=== PATIENT | male | born 1965 | race Caucasian/White ===

== ENCOUNTER 2017-11-03 04:20 | Emergency (ER) | payer BC ==
[2017-11-03 04:27] VITALS: BP 158/118; PULSE 81; BMI 34.2
--- NOTE | 2017-11-03 04:37 | PDOC ---
History of Present Illness - General Chief Complaint: Pain, Acute Stated Complaint: ABD PAIN Time Seen by Provider: 11/03/17 04:31 History Source: Patient Exam Limitations: No Limitations - History of Present Illness Initial Comments: 11/03/17 04:36 This is a 52-year-old male who has history of [id number] diabetes comes in complaining of mid abdomen abdominal pain. Patient describes it as sharp in nature and will come up out of a sleep. Patient denies any fever or chills however is noted to have a temperature 101 here in the emergency room. Patient denies nausea, vomiting or diarrhea. Patient said he is otherwise healthy. Patient denies any chest pain or shortness of breath. PAST MEDICAL HISTORY: [id number] diabetes PAST SURGICAL HISTORY: no significant history FAMILY HISTORY: no pertinant history SOCIAL HISTORY: Pt lives with family and is employed. MEDICATIONS: reviewed ALLERGIES: As per nursing notes Review of Systems General: No fevers or chills, no weakness, no weight loss HEENT: No change in vision. No sore throat,. No ear pain CardioVascular: No chest pain or shortness of breath Respiratory:No cough, or wheezing. Gastrointestinal: no nausea, vomitting, diarrhea or constipation, No rectal bleeding Genitourinary: No dysuria, hematuria, or frequency Musculoskeletal: No joint or muscle pain or swelling Neurologic: No headache, vertigo, dizziness or loss of consciousness Psychiatric: nor depression Skin: No rashes or easy bruising Endocrine: no increased thirst or abnormal weight change Allergic: no skin or latex allergy All other systems reviewed and normal Exam: General: Well-nourished well-developed individual, no acute distress HEENT: Throat: Normal, tonsils normal, no erythema or exudate Neck: Supple, no meningeal signs, no lymphadenopathy Eyes::Pupils equal reactive and round, extraocular motion intact Chest: Nontender to palpation Cardiac: S1-S2 normal, regular rate and rhythm, no murmurs rubs or gallops Respiratory: Lungs clear to auscultation bilateral Abdomen: Soft, nondistended, normal bowel sounds, mildly tender to palpation mid abdomen no guarding or rebound. Extremities: Warm, dry, no cyanosis, clubbing, or edema Skin: No rashes Neuro: Alert and oriented x3, CN II - XII intact, nonfocal exam with normal strength, normal sensation, normal reflexes, normal gait, Psych: Normal mood and affect Medical decision making this is a 52-year-old male who comes in complaining of abdominal pain patient has history significant for diabetes. Will obtain workup as patient does have a fever of 101 but no other associated symptoms. CBC, comp depending on the results of the lab will consider doing a CAT scan Will reassess 06:00 Patient's symptoms have completely resolved the pain is gone after having given patient some IV fluids and nothing else. Assessment and plan: This is a 52-year-old male comes to emergency room with sharp epigastric abdominal pain Patient's CBC is normal there is no left shift or evidence of any infectious process Patient's chemistries are also normal with the exception of a glucose of 213 which is secondary to his diabetes Patient discharged and told to follow-up with his primary care doctor Saturday if he has any further symptoms. In addition to that patient did pass a fair amount of gas in the emergency room and after that his symptoms resolved so this very well could have been gas pains. Etiology of the fever is uncertain however with a normal workup patient was advised that if he continues to have fevers he should follow-up with his doctor on Saturday or return to the ED Past History - Past Medical History Allergies/Adverse Reactions: Allergies Allergy/AdvReac Type Severity Reaction Status Date / Time No Known Allergies Allergy Unverified 11/03/17 04:24 Home Medications: Ambulatory Orders Metformin HCl 500 mg PO BID 11/03/17 CVA: No COPD: No Diabetes: Yes - Suicide/Smoking/Psychosocial Hx Smoking History: Current every day smoker Number of Cigarettes Smoked Daily: 20 Information on smoking cessation initiated: Yes 'Breaking Loose' booklet given: 11/03/17 *Physical Exam - Vital Signs Last Vital Signs Temp Pulse Resp BP Pulse Ox 101.1 F H 81 18 158/118 97 11/03/17 04:25 11/03/17 04:25 11/03/17 04:25 11/03/17 04:25 11/03/17 04:25 ED Treatment Course - LABORATORY CBC & Chemistry Diagram: 11/03/17 04:48 11/03/17 04:48 *DC/Admit/Observation/Transfer Diagnosis at time of Disposition: Abdominal pain - Discharge Dispostion Disposition: HOME Condition at time of disposition: Stable Admit: No - Referrals - Patient Instructions Additional Instructions: Your workup for abdominal pain was all normal. It is important to follow up with your doctor this week if you have any more abdominal pain. Return to the emergency department immediately with ANY new, persistent or worsening symptoms. Continue any medications as previously prescribed by your physician. You should follow up with your primary doctor as soon as possible regarding today's emergency department visit. . Please make sure your doctor reviews the results of your emergency evaluation. Thank you for coming to the Emergency Department today for your care. It was a pleasure to see you today. Please note that your evaluation is INCOMPLETE until you follow-up with your doctor. - Post Discharge Activity
[2017-11-03] MEDS ORDERED: ACETAMINOPHEN 1000 MG/100 ML VIAL (NON FORMULARY) IVPB ONE (04:38)
[2017-11-03] MEDS ORDERED: ACETAMINOPHEN INJECTION 100 ML IVPB ONE (04:46)
[2017-11-03 05:17] LABS: BASO % 0.7 % (0-2.0); EOS % 0.3 % (0-4.5); HEMATOCRIT 46.7 % (35.4-49); HEMOGLOBIN 15.8 GM/dL (11.7-16.9); LYMPH % 12.8 % (8-40); MCH 30.9 pg (25.7-33.7); MCHC 33.8 g/dl (32.0-35.9); MEAN CELL VOLUME 91.5 fl (80-96); MEAN PLT VOLUME 9.1 fl (7.5-11.1); MONO % 12.2 % (3.8-10.2); PLATELET COUNT 140 K/MM3 (134-434); RDW 13.6 % (11.9-15.9)
[2017-11-03 05:41] LABS: ALBUMIN 3.6 g/dl (3.4-5.0); ALK PHOS 91 U/L (45-117); ANION GAP 8 (8-16); BILIRUBIN,TOTAL 0.6 mg/dL (0.2-1.0); BLOOD UREA NITROGEN 11 mg/dL (7-18); CALCIUM 8.7 mg/dL (8.5-10.1); CHLORIDE 105 mmol/L (98-107); CO2 26 mmol/L (21-32); CREATININE 0.9 mg/dL (0.7-1.3); GLUCOSE,RANDOM 213 mg/dL (74-106); LIPASE 95 U/L (73-393); POTASSIUM 4.3 mmol/L (3.5-5.1); SGOT/AST 13 U/L (15-37); SGPT/ALT 27 U/L (12-78); SODIUM 139 mmol/L (136-145); TOT PROT 6.5 g/dl (6.4-8.2)
[2017-11-03 05:54] VITALS: TEMP 98.8
== END 2017-11-03 05:58 | disposition home or self-care (01) ==
LOC: FER 04:20
PROC: 3E033NZ Introduction of Analgesics, Hypnotics, Sedatives into Peripheral Vein, Percutaneous Approach (ICD-10-PCS; principal; 2017-11-03)
DX: R10.9 Unspecified abdominal pain (principal); F17.210 Nicotine dependence, cigarettes, uncomplicated; E11.9 Type 2 diabetes mellitus without complications
CPT/HCPCS: 36415; 80053; 82550; 83690; 84484; 85025; 99282-25